=== PATIENT | male | born 1950 | race Caucasian/White ===

== ENCOUNTER 2020-07-26 08:57 | Emergency (ER) | payer MEDICARE, SELFPAY ==
--- NOTE | ~2020-07-26 | CT_ITS ---
EXAMINATION: CT brain wo con INDICATION: Head injury COMPARISON: None TECHNIQUE: Standard unenhanced head CT. The dose-length product (DLP) was 681.00 mGy-cm. The mA was a djusted according to patient size. Iterative reconstruction technique was employed. FINDINGS: There is no acute intraparenchymal hemorrhage. No evidence of mass lesion. No evidence of a cute infarction. There is mild periventricular and subcortical hypodensity probably related to small vessel ischemic disease. There is mild prominence of the sulci and ventricles related to cerebral atr ophy. Intracranial calcified cerebral atherosclerosis is noted. There are no extra-axial collections. There is no mass effect or midline shift. The orbits and soft tissues are unremarkable. There is mi ld mucosal thickening of the paranasal sinuses. IMPRESSION: 1. No acute intracranial abnormality. 2. Age related findings. Reviewed, dictated and finalized at location A.
--- NOTE | ~2020-07-26 | CT_ITS ---
EXAMINATION: CT chest abdomen pelvis w con DATE: 07/26/2020 11:47 INDICATION: Right-sided pain after fall TECHNIQUE: Transaxial computed tomographic images of the chest, abdomen, and pelvis were obtained aft er the administration of 100 cc of Omnipaque 350 intravenous contrast. The dose-length product (DLP) was 1178.65 mGy-cm. Automated exposure control and iterative reconstruction technique were employed. COMPARISON: None FINDINGS: CHEST CT: There is a small right pleural effusion. There is no pneumothorax. No pathologically enlarged thoraci c lymph nodes are identified. The heart size is normal. There is mild dependent atelectasis. There ar e comminuted fractures of the right 11th and 12th ribs posteriorly. ABDOMEN/PELVIS CT: There are fractures of the right L3 transverse process. Cysts of the liver measure up to 1.8 cm in th e left hepatic lobe. The spleen, pancreas, and adrenal glands are normal. A stone is present in the n ondistended gallbladder. The kidneys are unremarkable. No pathologically enlarged abdominal or pelvic lymph nodes are identified. There is no free intraperitoneal gas or evidence of bowel obstruction. T he appendix is normal. A moderate volume of colonic stool is present. There is moderate lumbar spondy losis. IMPRESSION: 1. Comminuted posterior fractures of the right 11th and 12th ribs and fractures of the right L3 trans verse process. 2. Cholelithiasis without evidence of cholecystitis. Reviewed, dictated and finalized at location A. IMPRESSION: 1. Comminuted posterior fractures of the right 11th and 12th ribs and fractures of the right L3 transverse process. 2. Cholelithiasis without evidence of cholecystitis.
--- NOTE | ~2020-07-26 | CT_ITS ---
EXAMINATION: CT lumbar spine wo con DATE: 07/26/2020 11:47 INDICATION: Low back pain. TECHNIQUE: Computed tomography (CT) of the lumbar spine was performed without intravenous contrast. A utomated exposure control and iterative reconstruction technique were employed. The dose-length produ ct was 1346.66 mGy-cm. COMPARISON: None FINDINGS: There is 8 degrees levocurvature of lumbar spine. Vertebral body heights are normal. There is mildly decreased disc height at L1-L2, L2-L3, and L3-L4 and severely decreased disc height at L5-S 1. There are acute fractures of right 11th and 12th ribs and right L2 and L3 transverse processes. Th e following disc levels are specifically discussed: L1-L2: The disc is bulging. There is moderate right and mild left facet joint osteoarthritis. There i s mild bilateral neural foraminal stenosis. There is mild central canal stenosis. L2-L3: The disc is bulging. There is mild bilateral facet joint osteoarthritis. There is mild bilater al neural foraminal stenosis. There is mild central canal stenosis. L3-L4: The disc is bulging. There is mild right and moderate left facet joint osteoarthritis. There i s mild bilateral neural foraminal stenosis. There is mild central canal stenosis. L4-L5: The disc is bulging. There is mild right and moderate left facet joint osteoarthritis. There i s mild bilateral neural foraminal stenosis. There is mild central canal stenosis. L5-S1: The disc is bulging. There is severe bilateral facet joint osteoarthritis. There is moderate b ilateral neural foraminal stenosis. There is mild central canal stenosis. IMPRESSION: 1. Moderate lumbar spondylosis. 2. Acute fractures of right 11th and 12th ribs and right L2 and L3 transverse processes. Reviewed, dictated and finalized at location B. IMPRESSION: 1. Moderate lumbar spondylosis. 2. Acute fractures of right 11th and 12th ribs and right L2 and L3 transverse p rocesses.
[2020-07-26 09:11] VITALS: BP 130/73; PULSE 55; RESP 16; TEMP 36.6; O2SAT 100
--- NOTE | 2020-07-26 09:59 | ED.FALL ---
HPI - Fall General Chief Complaint: Fall Stated Complaint: fall off ladder last week Time Seen by Provider: 07/26/20 09:31 Source: patient Mode of arrival: ambulatory Limitations: no limitations History of Present Illness HPI Narrative: Patient is a 70 year old male who presents after fall 8-12 feet from ladder approximately 3 days ago. He reports losing balance and falling backward, he is unsure if he landed on feet first or directly on back, he is also unsure whether he fell on grass or on flagstone wall. He feels he fell on flagstone wall. He reports right sided lower back and flank/rib pain. He is not on anticoagulants. He denies LOC with fall or dizziness prior to fall. He denies numbness or tingling in extremities. He denies significant medical history. He reports increased pain with movement and coughing. He reports taking Tylenol with some relief . MD complaint: fall Review of Systems Review of Systems: Narrative: CONSTITUTIONAL: Denies fever, chills, or sweats. EYES: Denies visual changes, redness, or discharge. ENT: Denies rhinorrhea, congestion, sore throat, or otalgia. CARDIOVASCULAR: Denies chest pain, palpitations, or edema. RESPIRATORY: Denies cough or dyspnea. GASTROINTESTINAL: Denies abdominal pain, nausea, vomiting, or diarrhea. GENITOURINARY: Denies dysuria or hematuria. SKIN: Denies rash or itching. MUSCULOSKELETAL: Reports lower back pain and right flank/rib pain NEUROLOGIC: Denies headache, numbness, dizziness, or weakness. PSYCHIATRIC: Denies anxiety or depression. [facility] Past Medical History Medical History Arthritis Surgical History Surgical History History of repair of rotator cuff Social History Social History (Updated 07/26/20 @ 14:17 by CHEY Sanderson) Smoking status: Former smoker Tobacco type: cigarettes Alcohol intake: never Substance use: never Living arrangements: with family Occupation/Education: retired Exam Narrative: Exam Narrative: GENERAL: Well-appearing, well-nourished, and in no acute distress. HEAD: Normocephalic, atraumatic. EYES: EOMI. No redness or drainage. Conjunctiva are normal. ENT: Mucous membranes pink and moist. Nares clear. No rhinorrhea. TMs normal bilaterally. Throat normal. Uvula midline. NECK: AROM. Supple. No lymphadenopathy. CHEST: No respiratory distress. Clear to auscultation. HEART: Regular rate and rhythm. No murmur appreciated. Normal peripheral pulses. GI: Soft, nontender without rebound, or guarding. No distention. Bowel sounds normal in all quadrants. MUSCULOSKELETAL: No bony tenderness. No palpable step-offs EXTREMITIES: Normal range of motion. No edema. SKIN: Warm, dry, no rash. NEURO: No focal deficits. Alert and oriented x3. Gait steady. PSYCH: Normal affect. No signs of depression or anxiety. Course Consultations Consultation #1: Spoke with Dr. Holder, Trauma at [facility] who advises that fractures are stable and no further course of action is necessary at this time. Recommends patient following up with his PCP. Vital Signs Vital signs: Vital Signs Temperature 36.6 C 07/26/20 09:11 Pulse Rate 55 L 07/26/20 09:11 Respiratory Rate 16 07/26/20 09:11 Blood Pressure 130/73 07/26/20 09:11 Pulse Oximetry 100 07/26/20 09:11 Temperature 36.6 C 07/26/20 09:11 Pulse Rate 56 L 07/26/20 12:15 Respiratory Rate 12 07/26/20 12:15 Blood Pressure 116/87 07/26/20 12:15 Pulse Oximetry 99 07/26/20 12:15 Reviewed MDM - Fall MDM Narrative Medical decision making narrative: Patient is L3, L4 transverse process fractures as well as fracture to ribs 11 [address] Holder at [facility], who advises no further action needed at this time patient should follow-up with PCP. Discussed pain control and follow-up with patient, patient agrees with plan of care. Patient is stable for discharg
[2020-07-26 10:32] LABS: Add Urine Microscopic? YES; Appearance Urine Clear (Clear); Bilirubin Urine Negative (Negative); Blood Urine Negative (Negative); Color Urine Yellow (Yellow); Glucose Urine UA Negative (Negative); Ketones Urine Negative (Negative); Leukocyte Esterase Ur Negative LEU/UL (Negative); Mucus Urine Rare /lpf; Nitrate Urine Negative (Negative); Protein Urine Negative (Negative); RBC Urine 0-2 /hpf (0-2); Specific Grav Ur 1.017 (1.001-1.035); Squamous Epithelial Cell Urine Rare /hpf (Few); Urobilinogen Urine Negative mg/dL (<2.0); WBC Urine 0-3 /hpf
[2020-07-26 11:39] LABS: Basophils Percent Auto 0.3 % (0.2-1.2); Eosinophils Absolute Auto 0.1 K/mm3 (0-0.3); Eosinophils Percent Auto 0.8 % (0-4.4); Hematocrit 43.2 % (42.0-52.0); Hemoglobin 14.3 g/dL (14.0-18.0); Immature Granulocyte Absolute 0.01 K/mm3 (0.00-0.031); Immature Granulocyte Percent A 0.1 % (0-0.5); Lymphocytes Percent Auto 13.8 % (18.3-44.2); Mean Corpuscular HGB Conc 33.1 g/dl (32-36); Mean Corpuscular Hemoglobin 30.4 pg (26-34); Mean Corpuscular Volume 91.9 fl (80-100); Mean Platelet Volume 9.5 fl (7.4-10.4); Monocytes Absolute Auto 0.7 K/mm3 (0.1-0.6); Monocytes Percent Auto 9.5 % (2.6-8.5); Neutrophils Absolute Auto 5.5 K/mm3 (1.3-6.7); Neutrophils Percent Auto 75.5 % (45.5-73.1); Platelet Count Result 174 k/mm3 (150-375); Red Cell Distribution Width 12.6 % (11.5-14.5); White Blood Count 7.3 K/mm3 (4.5-10.0)
[2020-07-26 11:48] LABS: Alanine Aminotransferase 24 U/L (4-50); Albumin Level 3.7 g/dL (3.5-5.1); Alkaline Phosphatase 63 U/L (38-126); Anion Gap 4 mmol/L (8-16); Aspartate Amino Transferase 24 U/L (17-59); Bilirubin,Total 0.4 mg/dL (0.2-1.3); Blood Urea Nitrogen 21 mg/dL (9-20); Calcium 8.7 mg/dL (8.4-10.2); Carbon Dioxide 25 mmol/L (22-30); Chloride 109 mmol/L (98-107); Estimated CRCL calculation 83 ml/min; Estimated Glomerular Filt Rate > 60; Glucose 94 mg/dL (75-110); Potassium 4.3 mmol/L (3.4-5.0); Sodium 138 mmol/L (137-145)
[2020-07-26 12:15] VITALS: BP 116/87; PULSE 56; RESP 12; O2SAT 99
[2020-07-26 13:16] LABS: Estimated CRCL calculation 83 ml/min; Estimated Glomerular Filt Rate > 60
[2020-07-26 14:35] VITALS: BP 138/75; PULSE 72; RESP 16; O2SAT 98
== END 2020-07-26 14:35 | disposition home or self-care (01) ==
PROVIDERS: Emergency Provider Nurse Practitioner
DX: S32.028A Other fracture of second lumbar vertebra, initial encounter for closed fracture (principal); S32.038A Other fracture of third lumbar vertebra, initial encounter for closed fracture; S22.41XA Multiple fractures of ribs, right side, initial encounter for closed fracture; M19.90 Unspecified osteoarthritis, unspecified site; Z87.891 Personal history of nicotine dependence; K80.20 Calculus of gallbladder without cholecystitis without obstruction; M47.816 Spondylosis without myelopathy or radiculopathy, lumbar region; W11.XXXA Fall on and from ladder, initial encounter
CPT/HCPCS: 36415; 70450; 71260; 72131; 74177; 80053; 81001; 82248; 85025; 99284; Q9967

== ENCOUNTER 2022-12-24 16:50 | Emergency (ER) | payer MEDICARE, SELFPAY ==
--- NOTE | ~2022-12-24 | XR_ITS ---
EXAMINATION: XR chest 2V Exam Date/Time: 12/24/2022 17:05 CDT HISTORY: cough/congestin x 1 month Comparison: None. RESULT: Lines, tubes, and devices: None. Lungs and pleura: Senescent change. Streaky bibasilar atelectasis/scar. Cardiomediastinal silhouette: Stable. Other: No acute osseous or upper abdominal finding. Changes of DISH. IMPRESSION: No acute cardiopulmonary process. Reviewed, dictated and finalized at location K.
[2022-12-24 17:07] VITALS: BP 142/84; PULSE 71; RESP 16; TEMP 35.9; O2SAT 98
--- NOTE | 2022-12-24 18:09 | ED.GENADULT ---
HPI - General Adult General Chief complaint: Upper Respiratory Infection Stated complaint: chest brittney Source: patient Mode of arrival: ambulatory Limitations: no limitations History of Present Illness HPI narrative: Patient presents for evaluation of cough for the last month. Cough is productive of beige sputum. He denies any shortness of breath, wheezing, chest pain, fever, chills, nausea, vomiting, diarrhea. He is certain that he does not have COVID. He has received COVID vaccinations. He has a hx of bronchitis and this feels similar. No recent sick contacts to his knowledge. He tried taking Sudafed, Mucinex, DayQuil, NyQuil with mild improvement in his symptoms thereafter. He is a former smoker. Related Data Allergies Allergy/AdvReac Type Severity Reaction Status Date / Time No Known Allergies Allergy Verified 11/08/22 12:53 Review of Systems Review of Systems: CONSTITUTIONAL: Denies fever, chills, or sweats. EYES: Denies visual changes, redness, or discharge. ENT: Denies rhinorrhea, congestion, sore throat, or otalgia. CARDIOVASCULAR: Denies chest pain, palpitations, or edema. RESPIRATORY: Reports productive cough of beige sputum. Denies SOB and wheezing. GASTROINTESTINAL: Denies abdominal pain, nausea, vomiting, or diarrhea. GENITOURINARY: Denies dysuria or hematuria. SKIN: Denies rash or itching. MUSCULOSKELETAL: Denies back pain, joint pain, or myalgia. NEUROLOGIC: Denies headache, numbness, dizziness, or weakness. PSYCHIATRIC: Denies anxiety or depression. [facility] Past Medical History Medical History Arthritis Cholelithiasis CT 5.24.21 gallstones Former smoker quit 1979 Surgical History Surgical History History of ankle surgery 3.8.22 History of repair of rotator cuff L shoulder 2009 R shoulder x 2/ most recent 4.8.21 Family History Family History Mother Family history non-contributory Social History Social History Smoking status: Former smoker Tobacco type: cigarettes Alcohol intake: never Substance use: never Lack of Transportation: No Lack of Food: Never True Current Housing: I Have Housing Concerned About Future Housing: No Difficulty Paying Gas/Electric Bills: No Difficulty Paying for Meds: No Currently Unemployed: No Education: Bachelor's Degree Difficulty w/ Childcare or Family Care: No Living arrangements: with family Occupation/Education: retired Exam Narrative: GENERAL: Well-appearing, well-nourished, and in no acute distress. HEAD: Normocephalic, atraumatic. EYES: PERRLA and EOMI. ENT: Nares clear, no rhinorrhea or epistaxis. Mucous membranes moist. Oropharynx without tonsillar hypertrophy exudate or other lesions. Bilateral TMs pearly roman nonbulging NECK: Supple. No adenopathy or masses. No carotid bruits or JVD CHEST:Mild wheezing in left posterior lung hui. Other areas are CTA. No respiratory distress. HEART: Regular rate and rhythm. No murmur heard. Normal peripheral pulses. ABDOMEN: Soft, nontender, nondistended, normal active bowel sounds. EXTREMITIES: Normal range of motion. No edema. SKIN: Warm, dry, no rash. NEURO: No focal deficits. Alert and oriented x3. PSYCH: Normal mood and affect. Course Course Emergency Course: This is a 72-year-old male who presented for evaluation of cough for the last month. Chest x-ray normal. Exam consistent with bronchitis. Will discharge with prednisone. Given 1st dose here as his pharmacy is closed. Follow-up with primary provider. Go to the ER for shortness of breath or worsening symptoms. Patient in agreement with plan of care. Level of Care: Express Care Visit Vital Signs Vital signs: Vital Signs Temperature 35.9 C L 12/24/22 17:07 Pulse Rate 71 12/24/22 17:07 Respirator
[2022-12-24] MEDS: predniSONE 40 MG, predniSONE 10 MG 50 MG PO (18:13)
== END 2022-12-24 18:21 | disposition home or self-care (01) ==
PROVIDERS: Emergency Provider Nurse Practitioner; PCP Family Medicine
DX: J40 Bronchitis, not specified as acute or chronic (principal); Z87.891 Personal history of nicotine dependence
CPT/HCPCS: 71046; 99213; G0463; J7512

== ENCOUNTER 2024-01-20 08:49 | Emergency (ER) | payer MEDICARE, SELFPAY ==
--- NOTE | ~2024-01-20 | XR_ITS ---
Supine and upright views of the abdomen Clinical history: Diarrhea Findings: Bowel gas pattern is nonspecific. No evidence for obstruction or free air. No abnormal mass lesion or calcification is seen. Evidence of prior herniorrhaphy at the left inguinal region. Osseou s structures are intact. Impression: No acute abnormality is seen. Reviewed, dictated and finalized at [facility]. TAKER Impression: No acute abnormality is seen.
--- NOTE | 2024-01-20 08:54 | ED.NAVMDI ---
HPI - Nausea/Vomiting/Diarrhea General Chief complaint: Nausea/Vomiting/Diarrhea Stated complaint: diarrhea Time Seen by Provider: 01/20/24 09:55 Source: patient Mode of arrival: ambulatory Limitations: no limitations History of Present Illness HPI Narrative: Dago is a 73-year-old male patient presenting to the clinic today with complaints diarrhea x6 days. Symptoms started on Sunday. He has had 2 episodes of incontinence. Has been taking milk thistle and jacinto as well as eating bananas, rice, applesauce and yogurt. Has tried taking Imodium and phase on for his symptoms. Has had 3 diarrhea stools today. He denies any fever, chills, body aches, or blood in his stool. No nausea, vomiting, or blood in his stool. Related Data Allergies Allergy/AdvReac Type Severity Reaction Status Date / Time No Known Allergies Allergy Verified 01/20/24 09:59 Review of Systems Review of Systems: Pertinent positives per HPI. Patient denies any fever, chills, rash, headache, visual changes, dizziness, cough, runny nose, sore throat, shortness of breath, chest pain, palpitations, nausea, vomiting, constipation, abdominal pain, or any urinary issues. [facility] Past Medical History Medical History Arthritis Cholelithiasis CT 5.24.21 gallstones Former smoker quit 1979 Surgical History Surgical History History of ankle surgery 3.8.22 History of repair of rotator cuff L shoulder 2009 R shoulder x 2/ most recent 4.8.21 Family History Family History Mother Family history non-contributory Social History Social History Smoking status: Former smoker Tobacco type: cigarettes Alcohol intake: never Substance use: never Lack of Transportation: No Lack of Food: Never True Current Housing: I Have Housing Concerned About Future Housing: No Difficulty Paying Gas/Electric Bills: No Difficulty Paying for Meds: No Currently Unemployed: No Education: Bachelor's Degree Difficulty w/ Childcare or Family Care: No Living arrangements: with family Occupation/Education: retired Comments At the time of my signature, I reviewed and agree with the nursing past medical, surgical, social, and family history. There is no relevant family history pertinent to the patient complaint. Exam Narrative: General: Well-developed, well nourished, in no apparent distress. Head: Normocephalic, atraumatic. Cardio: Regular rate and rhythm, s1 and s2 normal, no murmur appreciated. Resp: Clear to auscultation bilaterally, no rhonchi, rales, wheezing or rubs. Abdomen: Soft, pliable, bowel sounds present in all quadrants, non-tender to palpation, no organomegly, no CVAT tenderness. Course Course Emergency Course: Portions of this record may have been created with voice recognition software. Level of Care: Express Care Visit Vital Signs Vital signs: Vital Signs Temperature 36.1 C L 01/20/24 09:46 Pulse Rate 63 01/20/24 09:46 Respiratory Rate 16 01/20/24 09:46 Blood Pressure 101/72 01/20/24 09:46 Pulse Oximetry 100 01/20/24 09:46 Temperature 36.1 C L 01/20/24 09:46 Pulse Rate 63 01/20/24 09:46 Respiratory Rate 16 01/20/24 09:46 Blood Pressure 101/72 01/20/24 09:46 Pulse Oximetry 100 01/20/24 09:46 Vital signs reviewed MDM - Nausea/Vomiting/Diarrhea MDM Narrative Medical decision making narrative: At the time of visit patient is resting comfortably on the exam table. Patient appears to be nontoxic. Diagnostics: Abdomen x-ray was negative for any intra-abdominal pathology. Normal bowel gas pattern Plan: I suspect patient has acute diarrhea. Will send in prescription for 3 day 500 mg azithromycin is a as well as some Levsin for the cramping. Supportive measures were discussed with the patient and they voiced understanding discharge instructions and agrees to treatment plan. Return precautions reviewed Differential Diagnosis Differential diagnosis: Likely traveler's diarrhea, food poisoning, gastroenteritis, clostridium difficile infection, drug-induced nausea and vomiting and dehydration Imaging Data Radiologist's impression: ITS Impressions Abdomen X-Ray 01/20/24 10:20 Impression: No acute abnormality is seen. Discharge Plan Discharge Clinical Impression: Acute diarrhea Patient Disposition: Home, Self-Care Condition: Stable Instructions: Antibiotic Form, Acute Diarrhea (ED) Additional Instructions: X-ray of your abdomen shows a normal bowel gas pattern. No sign of obstruction or constipation. Take prescription medications only as prescribed-azithromycin and Levsin Increase fluids and stay well hydrated Tylenol/motrin for pain/fever BRAT diet for diarrhea May continue Imodium as needed for diarrhea as long as there is no blood in your stool. Clear liquids x 24 hours then advance as tolerated for nausea/vomiting Go to the ED if you develop a worsening in your condition- high fever not controlled by Tylenol or Motrin, dehydration, weakness, lethargy, shortness of breath, or chest pain. Follow up with your PCP in 3-5 days if symptoms persist. Prescriptions: New azithromycin 500 mg tablet See Rx Instructions .ROUTE .COMPLEX Qty: 3 0RF Rx Instructions: For 500 mg dose pack: take 500 mg once daily for 3 days hyoscyamine sulfate [Levsin] 0.125 mg tablet 0.125 mg PO QID PRN (Reason: dyspepsia) 3 Days Qty: 12 0RF Follow-up/Referrals: Kala Galvez MD [Primary Care Provider] - Time of Disposition: 10:33 Quality NIHSS Nursing Documentation ED NIHSS nursing documentation: reviewed/agree
[2024-01-20 09:46] VITALS: BP 101/72; PULSE 63; RESP 16; TEMP 36.1; O2SAT 100
== END 2024-01-20 10:38 | disposition home or self-care (01) ==
PROVIDERS: Emergency Provider Nurse Practitioner Family; PCP Family Medicine
DX: R19.7 Diarrhea, unspecified (principal); Z87.891 Personal history of nicotine dependence; M19.90 Unspecified osteoarthritis, unspecified site
CPT/HCPCS: 74018; 99213; G0463

== ENCOUNTER 2024-01-24 13:39 | Outpatient (CLI) | payer MEDICARE, SELFPAY ==
[2024-01-28 14:03] LABS: Trichrome Ova and Parasites STATUS: FINAL
== END 2024-01-24 13:40 | disposition home or self-care (01) ==
PROVIDERS: PCP Family Medicine; Visit Provider Family Medicine
DX: R19.7 Diarrhea, unspecified (principal)
CPT/HCPCS: 87045; 87177; 87209; 87269; 87427; 87449; 87493

== ENCOUNTER 2024-01-28 08:57 | Emergency (ER) | payer MEDICARE, SELFPAY ==
--- NOTE | ~2024-01-28 | CT_ITS ---
EXAMINATION: CT abdomen pelvis w con DATE: 01/28/2024 11:12 INDICATION: One week of diarrhea TECHNIQUE: Computed tomography (CT) of the abdomen and pelvis was performed with 100 mL Omnipaque-350 intravenous contrast. Automated exposure control and iterative reconstruction technique were employe d. The dose-length product was 905.21 mGy-cm. COMPARISON: 07/26/2020 FINDINGS: There are couple 10-12 mm nodules with surrounding spiculated margins in the bilateral lower lobes. T here is a smaller 8 mm groundglass nodule along the cephalad-most image in the right lower lobe. Hear t size is normal. No pericardial or pleural effusion. Calcified gallstone in the partially decompress ed gallbladder. There are couple hepatic cysts measuring up to 1.7 cm. Spleen, pancreas, bilateral ad renal glands and kidneys are normal. There is moderate colonic diverticulosis with a sigmoid predomin ance. There is no adjacent inflammatory change to suggest diverticulitis. Normal appendix. There is fluid within several nondilated loops of small bowel extending throughout much of the colon consiste nt with reported history of diarrhea. Bladder is normal. Unchanged small to moderate-sized bilateral fat-containing inguinal hernias. Postoperative change of prior left inguinal hernia mesh repair. No f ree intraperitoneal gas or fluid. No pathologically enlarged abdominal or pelvic lymphadenopathy. Mod erate lumbar spondylosis. IMPRESSION: 1. Fluid-filled loops of large and small bowel consistent with provided history of diarrhea. No other acute intra-abdominal/pelvic process. 2. A couple 10-12 mm nodule with spiculated margins the bilateral lower lobes smaller 8 mm groundglas s nodule in the right lower lobe which could be infectious, inflammatory or malignant in etiology. Co nsider dedicated chest CT in 4-6 weeks to assess for any additional nodules while also allowing some time to assess for any rapid interval evolution favoring infectious/inflammatory etiologies. 3. Cholelithiasis. 4. Unchanged small to moderate-sized bilateral fat-containing inguinal hernias with change of prior l eft inguinal hernia mesh repair. 5. Diverticulosis. Reviewed, dictated and finalized at location A. GLE INSPECTOR IMPRESSION: 1. Fluid-filled loops of large and small bowel consistent with provided history of diarrhea. No other acute intra-abdominal/pelvic process. 2. A couple 10-12 mm nodule with spiculated margins the bilateral lower lobes s maller 8 mm groundglass nodule in the right lower lobe which could be infectiou s, inflammatory or malignant in etiology. Consider dedicated chest CT in 4-6 we eks to assess for any additional nodules while also allowing some time to asses s for any rapid interval evolution favoring infectious/inflammatory etiologies. 3. Cholelithiasis. 4. Unchanged small to moderate-sized bilateral fat-containing inguinal hernias with change of prior left inguinal hernia mesh repair. 5. Diverticulosis.
[2024-01-28 09:04] VITALS: BP 131/69; PULSE 71; RESP 17; TEMP 36.4; O2SAT 100
[2024-01-28 09:17] LABS: Basophils Percent Auto 0.3 % (0.2-1.2); Eosinophils Percent Auto 0.5 % (0-4.4); Hematocrit 46.3 % (42.0-52.0); Hemoglobin 15.4 g/dL (14.0-18.0); Immature Granulocyte Absolute 0.01 K/mm3 (0.00-0.031); Immature Granulocyte Percent A 0.2 % (0-0.5); Lymphocytes Absolute Auto 1.22 K/mm3 (0.9-3.2); Lymphocytes Percent Auto 20.4 % (18.3-44.2); Mean Corpuscular HGB Conc 33.3 g/dl (32-36); Mean Corpuscular Hemoglobin 30.1 pg (26-34); Mean Corpuscular Volume 90.4 fl (80-100); Mean Platelet Volume 9.5 fl (7.4-10.4); Monocytes Absolute Auto 0.6 K/mm3 (0.1-0.6); Monocytes Percent Auto 10.5 % (2.6-8.5); Neutrophils Absolute Auto 4.1 K/mm3 (1.3-6.7); Neutrophils Percent Auto 68.1 % (45.5-73.1); Platelet Count Result 216 k/mm3 (150-375); Red Blood Count 5.12 M/mm3 (4.6-6.20); Red Cell Distribution Width 12.6 % (11.5-14.5)
[2024-01-28 09:28] LABS: Alanine Aminotransferase 24 U/L (6-50); Albumin Level 4.1 g/dL (3.5-5.1); Alkaline Phosphatase 82 U/L (38-126); Anion Gap 7 mmol/L (4-12); Aspartate Amino Transferase 29 U/L (17-59); Bilirubin,Total 0.8 mg/dL (0.2-1.3); Blood Urea Nitrogen 13 mg/dL (9-20); Calcium 8.9 mg/dL (8.4-10.2); Carbon Dioxide 27 mmol/L (22-30); Chloride 105 mmol/L (98-107); Estimated CRCL calculation 69 ml/min; Estimated Glomerular Filt Rate > 60; Glucose 101 mg/dL (65-110); Lipase 87 U/L (23-300); Potassium 4.1 mmol/L (3.4-5.0); Sodium 139 mmol/L (137-145)
--- NOTE | 2024-01-28 09:33 | PC.NURSE ---
Pt states tried to give urine sample in waiting room, unable to. Pt states will try again.
[2024-01-28] MEDS: SODIUM CHLORIDE 0.9% IV 1,000 ML 999 ML IV CONT (10:20)
--- NOTE | 2024-01-28 10:23 | ED_ITS ---
HPI - Nausea/Vomiting/Diarrhea General Chief complaint: Nausea/Vomiting/Diarrhea Stated complaint: diarrhea Time Seen by Provider: 01/28/24 09:19 Source: patient Mode of arrival: ambulatory Limitations: no limitations History of Present Illness HPI Narrative: Patient is a 73-year-old male who presents the ED with report of diarrhea. Patient reports having persistent diarrhea over the last 1 week. Occasionally having multiple episodes per day. He has seen his primary care doctor for this and been prescribed azithromycin and hyoscyamine but denies changes. Has been using brat diet, but again denies changes in diarrhea. He states he tested negative for C diff and stool culture was negative. He reports some abdominal cramping associated with the diarrhea. Denies nausea, vomiting, rectal bleeding, melena, fevers. Related Data Home Medications Medication Instructions Recorded Confirmed celecoxib 200 mg capsule mg PO 01/23/24 01/23/24 Allergies Allergy/AdvReac Type Severity Reaction Status Date / Time No Known Allergies Allergy Verified 01/23/24 14:02 Review of Systems Review of Systems: All systems reviewed & are unremarkable except as noted in HPI. All systems reviewed & are unremarkable except as noted in HPI and below PMFSH Past Medical History Medical History Arthritis Cholelithiasis CT 5.24.21 gallstones Former smoker quit 1979 Surgical History Surgical History History of ankle surgery 3.8.22 History of repair of rotator cuff L shoulder 2009 R shoulder x 2/ most recent 4.8.21 Family History Family History Mother Family history non-contributory Social History Social History Smoking status: Former smoker Tobacco type: cigarettes Alcohol intake: never Substance use: never Lack of Transportation: No Lack of Food: Never True Current Housing: I Have Housing Concerned About Future Housing: No Difficulty Paying Gas/Electric Bills: No Difficulty Paying for Meds: No Currently Unemployed: No Education: Bachelor's Degree Difficulty w/ Childcare or Family Care: No Living arrangements: with family Occupation/Education: retired Exam Narrative: GENERAL: Well appearing, well-nourished, non-toxic, in no acute distress. HEAD: Normocephalic, atraumatic. RESPIRATORY: Airway patent, respirations nonlabored. Clear to auscultation bilaterally, no rales, rhonchi, wheezing. CARDIOVASCULAR: Regular rate and rhythm without murmurs, rubs, or gallops. ABDOMINAL: Soft, no significant focal tenderness, nondistended. Normoactive BS. MUSCULOSKELETAL: Moves all extremities. No gross deformities. SKIN: Warm, dry, normal color. NEURO: A&O X3. Speech clear. PSYCHIATRIC: Appropriate mood and affect. Normal interaction. Course Vital Signs Vital signs: Vital Signs Temperature 97.5 F L 01/28/24 09:04 Pulse Rate 71 01/28/24 09:04 Respiratory Rate 17 01/28/24 09:04 Blood Pressure 131/69 01/28/24 09:04 Pulse Oximetry 100 01/28/24 09:04 Oxygen Delivery Room Air 01/28/24 09:04 Temperature 97.5 F L 01/28/24 09:04 Pulse Rate 63 01/28/24 11:47 Respiratory Rate 16 01/28/24 11:47 Blood Pressure 133/86 01/28/24 11:47 Pulse Oximetry 100 01/28/24 11:47 Oxygen Delivery Room Air 01/28/24 09:04 MDM - Nausea/Vomiting/Diarrhea MDM Narrative Medical decision making narrative: Patient presented to ED with 1 week history of persistent diarrhea, has tested negative for C diff and had negative stool culture as outpatient. Vital signs are stable upon arrival. Patient is afebrile here. Cbc without leukocytosis. CMP is unremarkable. Stable electrolytes. UA with very small a mount of white blood cell count, few squamous cell. Sent for culture. Patient denying any urinary complaints. Low suspicion for acute UTI. CT scan of abdomen /pelvis obtained showing fluid-filled loops of small large bowel. No obstruction. No other concerning intra-abdominal findings. did show incidental pulmonary nodules, which I made patient aware of and will need further workup as an outpatient. Overall workup reassuring. Feel patient is safe for discharge home. patient was advised to advance diet slowly as tolerated, may use Imodium as needed for diarrhea. will also prescribe Bentyl for cramping discomfort. Suspect gastroenteritis type picture. Recommended close follow-up with PCP for further evaluation. Given return precautions. Discharged in stable condition. Differential Diagnosis Differential diagnosis: Likely food poisoning, gastroenteritis, clostridium difficile infection, dehydration and other (colitis, diverticulitis, electrolyte derangment) Medical Records Attestation: I reviewed the patient's medical records. Lab Data Attestation: I reviewed the patient's lab results. 01/28/24 09:09 01/28/24 09:09 Labs: Lab Results 01/28/24 01/28/24 Range/Units 09:09 10:51 WBC 6.0 (4.5-10.0) K/mm3 RBC 5.12 (4.6-6.20) M/mm3 Hgb 15.4 (14.0-18.0) g/dL Hct 46.3 (42.0-52.0) % MCV 90.4 (80-100) fl MCH 30.1 (26-34) pg MCHC 33.3 (32-36) g/dl RDW 12.6 (11.5-14.5) % Plt Count 216 (150-375) k/mm3 MPV 9.5 (7.4-10.4) fl Immature Gran % (Auto) 0.2 (0-0.5) % Neut % (Auto) 68.1 (45.5-73.1) % Lymph % (Auto) 20.4 (18.3-44.2) % [place] % (Auto) 10.5 H (2.6-8.5) % Eos % (Auto) 0.5 (0-4.4) % Baso % (Auto) 0.3 (0.2-1.2) % Lymph # (Auto) 1.22 (0.9-3.2) K/mm3 [place] # (Auto) 0.6 (0.1-0.6) K/mm3 Eos # (Auto) 0.0 (0-0.3) K/mm3 Baso # (Auto) 0.0 (0.0-0.1) K/mm3 Abs Immat Gran (auto) 0.01 (0.00-0.031) K/mm3 Absolute Neuts (auto) 4.1 (1.3-6.7) K/mm3 Absolute Nucleated RBC 0.000 (0.0-0.012) K/mm3 Nucleated RBC % 0.0 (0.0-0.2) % Sodium 139 (137-145) mmol/L Potassium 4.1 (3.4-5.0) mmol/L Chloride 105 (98-107) mmol/L Carbon Dioxide 27 (22-30) mmol/L Anion Gap 7 (4-12) mmol/L BUN 13 D (9-20) mg/dL Creatinine 1.00 (0.7-1.3) mg/dL Estim Creat Clear Calc 69 ml/min Estimated GFR > 60 (59 - ) Glucose 101 (65-110) mg/dL Calcium 8.9 (8.4-10.2) mg/dL Magnesium 2.0 (1.6-2.3) mg/dL Total Bilirubin 0.8 (0.2-1.3) mg/dL AST 29 (17-59) U/L ALT 24 (6-50) U/L Alkaline Phosphatase 82 (38-126) U/L Total Protein 7.0 (6.3-8.2) g/dL Albumin 4.1 (3.5-5.1) g/dL Lipase 87 (23-300) U/L Urine Color Yellow (Yellow) Urine Appearance Sl cloudy (Clear) Urine pH 6.0 (5.0-9.0) Ur Specific [place] 1.020 (1.001-1.035) Urine Protein Negative (Negative) mg/dL Urine Glucose (UA) Negative (Negative) mg/dL Urine Ketones 2+ H (Negative) mg/dL Ur Blood (Man) Negative (Negative) Urine Nitrate Negative (Negative) Urine Bilirubin Negative (Negative) Urine Urobilinogen 0.2 (<2.0) mg/dL Leukocyte Esterase Rfl Trace H (Negative) [place]/UL Urine RBC 0-2 (0-2) /hpf Urine WBC 4-6 H (0-3) /hpf Ur Squamous Epith Cells Few (Few) /hpf Urine Mucus Few H /lpf Imaging Data Attestation: I personally reviewed and interpreted this imaging study as follows: Radiologist's impression: ITS Impressions Abdomen/Pelvis CT 01/28/24 11:14 IMPRESSION: 1. Fluid-filled loops of large and small bowel consistent with provided history of diarrhea. No other acute intra-abdominal/pelvic process. 2. A couple 10-12 mm nodule with spiculated margins the bilateral lower lobes smaller 8 mm groundglass nodule in the right lower lobe which could be infectious, inflammatory or malignant in etiology. Consider dedicated chest CT in 4-6 weeks to assess for any additional nodules while also allowing some time to assess for any rapid interval evolution favoring infectious/inflammatory etiologies. 3. Cholelithiasis. 4. Unchanged small to moderate-sized bilateral fat-containing inguinal hernias with change of prior left inguinal hernia mesh repair. 5. Diverticulosis. Discharge Plan Discharge Clinical Impression: Incidental pulmonary nodule Diarrhea Qualifiers: Diarrhea type: unspecified type Qualified Code(s): R19.7 - Diarrhea, unspecified Patient Disposition: Home, Self-Care Condition: Stable Instructions: Antibiotic Form, Dehydration (ED), Clear Liquid Diet (ED), Gastroenteritis (ED), Acute Diarrhea (ED) Additional Instructions: Your workup here was reassuring. You may use Bentyl or Tylenol as needed for abdominal discomfort. You may use Imodium as needed for diarrhea. Follow-up closely with your primary care doctor for further evaluation. Return to the ED if you experience worsening or severe symptoms, severe pain, rectal bleeding, dark black stools, unable to keep down food or drink, fevers, or any other symptoms of concern. Your CT imaging here showed a few pulmonary nodules. You will need to follow- up with your primary care doctor for further evaluation of this and repeat dedicated chest imaging in the next 4-6 weeks. Prescriptions: New dicyclomine 20 mg tablet 20 mg PO TID PRN (Reason: Abdominal Discomfort) Qty: 10 0RF No Action celecoxib 200 mg capsule PO azithromycin 250 mg tablet See Rx Instructions PO .COMPLEX Qty: 6 0RF Rx Instructions: For 250 mg dose pack: take 500 mg today (day 1), then 250 mg for 4 days (days 2-5) PO hyoscyamine sulfate 0.125 mg tablet 0.125 mg PO QID PRN (Reason: abdominal pain) Qty: 30 0RF Follow-up/Referrals: Kala Galvez MD [Primary Care Provider] - Time of Disposition: 11:39
[2024-01-28 11:08] LABS: Add Urine Microscopic? YES
[2024-01-28 11:10] LABS: Color Urine Yellow (Yellow)
[2024-01-28 11:11] LABS: Appearance Urine Sl Cloudy (Clear); Bilirubin Urine Negative (Negative); Blood Urine Negative (Negative); Glucose Urine UA Negative (Negative); Ketones Urine 2+ mg/dL (Negative); Leukocyte Esterase Ur Trace LEU/UL (Negative); Nitrate Urine Negative (Negative); Protein Urine Negative (Negative); Urobilinogen Urine 0.2 mg/dL (<2.0)
[2024-01-28 11:42] LABS: RBC Urine 0-2 /hpf (0-2)
[2024-01-28 11:43] LABS: Mucus Urine Few /lpf; Squamous Epithelial Cell Urine Few /hpf (Few)
[2024-01-28 11:47] VITALS: BP 133/86; PULSE 63; RESP 16; O2SAT 100
--- NOTE | 2024-01-28 11:54 | PC.NURSE ---
Pt states he will press his call light when fluid bag has infused so IV can be removed.
== END 2024-01-28 12:28 | disposition home or self-care (01) ==
PROVIDERS: Emergency Medicine; Emergency Provider Physician Assistant; PCP Family Medicine
DX: R19.7 Diarrhea, unspecified (principal); R91.1 Solitary pulmonary nodule; M19.90 Unspecified osteoarthritis, unspecified site; R82.998 Other abnormal findings in urine
CPT/HCPCS: 36415; 74177; 80053; 81001; 83690; 83735; 85025; 87086; 96360; 96361; 99284; J7030; Q9967

== ENCOUNTER 2024-03-21 09:47 | Outpatient (CLI) | payer MEDICARE, SELFPAY ==
--- NOTE | ~2024-03-21 | CT_ITS ---
CT diagnostic chest wo con Ordering provider: Kala Galvez MD History: 73 years Male with . R93.5 - Abnormal findings on diagnostic imaging of other ... . Comparison: July 26, 2020 Technique: CT chest without IV contrast. Radiation reduction technique utilized.The dose-length product was 183.72 mGy-cm. FINDINGS: VISUALIZED THORACIC INLET: Normal. MEDIASTINUM: Aorta/coronary arteries: Mild atheromatous disease. Heart/other: The heart is not enlarged. Lymph nodes: No mediastinal or hilar adenopathy. LUNGS: Tiny nodule in the right upper lobe measuring 3 mm. 5 mm nodule in the right middle lobe later ally is also noted. 5 mm nodule in the right lower lobe laterally is also noted. 6 mm nodule is also seen in the right lower lobe laterally. 3 mm nodule is also seen in the right lower lobe laterally. 6 mm nodule in the left lower lobe is also seen. No pulmonary masses. No infiltrates or effusions. No pneumothorax. VISUALIZED UPPER ABDOMEN: Cholelithiasis. Hypodensities in the liver most likely cysts measuring 2.1 cm and 1.3 cm.. Otherwise, the visualized upper abdomen is normal. MUSCULOSKELETAL: Soft tissues: The superficial soft tissues are normal. Bones: Age appropriate degenerative changes of the spine. IMPRESSION: 1. Multiple nodules with the largest measuring 6 mm. 6 months follow-up CT is advised. 2. No acute cardiopulmonary pathology. 3. Cholelithiasis. 4. 2. Hepatic cysts. Reviewed, dictated and finalized at location A. ATING TRANSCRIBING MACHINE SERVICER
== END 2024-03-21 09:48 | disposition home or self-care (01) ==
PROVIDERS: PCP Family Medicine; Visit Provider Family Medicine
DX: R93.5 Abnormal findings on diagnostic imaging of other abdominal regions, including retroperitoneum (principal); R91.1 Solitary pulmonary nodule; K80.20 Calculus of gallbladder without cholecystitis without obstruction; K76.89 Other specified diseases of liver
CPT/HCPCS: 71250

== ENCOUNTER 2024-09-16 13:01 | Outpatient (CLI) | payer MEDICARE, SELFPAY ==
--- NOTE | ~2024-09-16 | CT_ITS ---
CT Scan of the Chest without Contrast: Clinical Indication: Pulmonary nodule Technique: Contiguous sections were acquired throughout the chest without intravenous contrast. Dose reduction technique was used on this scan by utilizing automated exposure control and iterative recon struction technique. The dose-length product (DLP) was 146.50 mGy-cm. COMPARISON: 03/21/2024 Findings: There is no evidence of any significant mediastinal, hilar or axillary lymphadenopathy. The mediastin al soft tissues appear normal. There is no evidence of pleural or pericardial effusion. Several subcentimeter right upper lobe pulmonary nodule or unchanged, largest measuring 4-5 mm (axial image 62). Images through the upper abdomen reveal no abnormalities. Impression: Stable subcentimeter right upper lobe pulmonary nodules, as noted above. Reviewed, dictated and finalized at location . Impression: Stable subcentimeter right upper lobe pulmonary nodules, as noted above.
--- OUTSIDE RECORDS SUMMARY | 2024-09-16 13:10 | XMS_ITS | Clinical Summary ---
Author Organization [facility] Address [address] [facility] [address] [place] [address] Phone Care Team Providers Care Hr Shared Services Consultant Name Role Phone Kala Galvez MD Primary Care Provider [phone] Terrie Trevino APRN, MOTOR BIKE MECHANIC Unavailable Allergies No known active allergies Medications INV calcium gluconate-magne sium sulfate OR placebo Solution Take by mouth daily. Active celecoxib (CeleBREX) 200 MG Capsule Take 1 Capsule by mouth daily. 4 Active cholestyramine (QUESTRAN) 4 GM/DOSE Powder TAKE 4GM BY MOUTH ONCE DAILY WITH A MEAL NEEDED FOR DIARRHEA. AVOID OTHER MEDS WITHIN ONE HOUR BEFORE OR 4 TO 6 HOURS AFTER DOSE. HOLD FOR CONSTIPATION 4 Active Ascorbic Acid 1000 MG Tablet Take 1,000 mg by mouth daily. Active vitamin E (TOCOPHEROL) 400 UNIT Capsule Take 1,000 Units by mouth. Active Probiotic Product (Advanced Probiotic-14) Capsule Take 1 Capsule by mouth daily. Active Apoaequorin (PREVAGEN PO) Take by mouth. A ctive ocuvite-lutein (OCUVITE) Capsule Take 1 Capsule by mouth daily. Active [place]-3 Fatty Acids (OMEGA-3 FISH OIL PO) Take by mouth. Ac tive Multiple Vitamin (MULTI-VITAMIN PO) Take by mouth daily. Active CALCIUM PO Take by mouth daily. Active sertraline (ZOLOFT) 25 MG Tablet Take 25 mg by mouth daily. Active hydrOXYzine (ATARAX) 10 MG Tablet Take 10 mg by mouth every 6 hours as needed. Active ibuprofen (MOTRIN) 200 MG Tablet Take 400 mg by mouth every 8 hours as needed. 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 Encounters Date Type Department Care Team Description 09/08/2024 Travel 08/13/2024 Telephone [facility] [address] [place] [address] Terrie Trevino APRN, RADHA Procedure; Appointment 08/07/2024 [facility] [place] [address] Terrie Trevino APRN, RADHA from Last 3 Months Family History Medical History Relation Name Comments Cancer Father Congestive Heart Failure Mother Cancer Sister Lung Relation Name Status Comments Father Mother Sister Social History Tobacco Use Types Packs/Day Years Used Date Smoking Tobacco: Former Cigarettes Q uit: 1980 Smokeless Tobacco: Never Tobacco Cessation:Counseling Given: Not Answered Alcohol Use Standard Drinks/Week Comments Yes 0 (1 standard drink = 0.6 oz pur e alcohol) very rarely Sex and Gender Information Value Date Recorded Sex Assigned at Not on file Legal Sex Male 8:35 AM CDT Gender Identity Not on file Sexual Orientation Not on file Last Filed Vital Signs Vital Sign Reading Time Taken Comments Blood Pressure 103/72 04/02/2024 8:55 AM SEARCH ENGINE OPTIMIZATION STRATEGIST Pulse 75 04/02/2024 8:55 AM SEARCH ENGINE OPTIMIZATION STRATEGIST Temperature 36 C (96.8 F) 04/02/2024 8:55 AM SEARCH ENGINE OPTIMIZATION STRATEGIST Respiratory Rate 18 04/02/2024 8:55 AM SEARCH ENGINE OPTIMIZATION STRATEGIST Oxygen Saturation 98% 04/02/2024 8:55 AM SEARCH ENGINE OPTIMIZATION STRATEGIST Inhaled Oxygen Concentration - - Weight 106.6 kg (235 lb) 09/08/2024 3:00 PM CDT Height 188 cm (6' 2) 09/08/2024 3:00 PM CDT Body Mass Index 30.17 09/08/2024 3:00 PM CDT Plan of Treatment Upcoming Encounters Date Type Department Care Team (Late st Contact Info) Description 09/17/2024 9:00 AM CDT [facility] [address] [place] [address] Bhargav Faye MD [address] [place] [address] 09/17/2024 9:00 AM CDT - 09/17/2024 9:30 AM CDT [facility] [address] [place] [address] Bhargav Faye MD [address] [place] [address] COLONOSCOPY Scheduled Procedures Name Priority Associated Diagnoses Date/Ti me COLONOSCOPY SCREENING 09/17/2024 9:00 AM CDT Health Maintenance Due Date Last Done Comments Hepatitis C Virus (HCV) Screening 1950 Cologuard 06/13/1996 Respiratory Syncytial Virus (RSV) Immunization (Adult) (1 - Risk 60-74 years 1-dose series) 2011 Immunochemical Fecal Occult Blood 08/02/2014 08/02/2013 AAA Screening Ultrasound 06/13/2016 Zoster Immunization (2 of 3) 03/31/2017 02/03/2017 SARS-COV-2 Immunization ( season) 2023 01/30/2023, 12/06/2021, 07/29/2021, Additional history exists Colonoscopy 09/30/2024 04/02/2024 Colorectal Cancer Screening 09/30/2024 Influenza Immunization (#1) 11/03/202401/04, 12/05/2021, 12/09/2019, Additional history exists DTaP/Tdap/Td Immunization Discontinued 10/12/2016, 10/2014 TdaP Immunization Completed 10/12/2016, 08/10/2014 Pneumococcal Immunization (50+ years) Completed 01/30/2023, 12/05/2021, 11/30/2017, Additional history exists Hepatitis B Immunization Aged Out No longer eligible based on patient's age to complete this topic Human Papillomavirus (HPV) Immunization Aged Out No longer eligible based on patient's age to complete this topic Meningococcal Immunization (ACWY) Aged Out No longer eligible based on patient's age to complete this topic Rotavirus Immunization Aged Out No lo nger eligible based on patient's age to complete this topic Insurance Care Teams Hr Shared Services Consultant Relationship Specialty Start Date End Date Kala Galvez MD [address] [place] [address] [address] [place], [place] [id number] PCP - General Family Medicine 02/28/24 Terrie Trevino APRN, MOTOR BIKE MECHANIC [address] [place] [address] Nurse Practitioner Advanced Practice Nurse 03/11/24
== END 2024-09-16 13:02 | disposition home or self-care (01) ==
PROVIDERS: PCP Family Medicine; Visit Provider Physician Assistant
DX: R91.1 Solitary pulmonary nodule (principal)
CPT/HCPCS: 71250